=== PATIENT | female | born 1975 | race Caucasian/White ===

== ENCOUNTER 2018-02-23 17:05 | Emergency (ER) | payer OTHER ==
[~2018-02-23] VITALS: Ht 167.6 cm; Wt 75.3 kg
[~2018-02-23 17:05] MED LIST: HYDR1TAB10 PO
--- NOTE | 2018-02-23 17:56 | ED.ADGEN ---
Past History Past Medical History: Asthma Past Surgical History: Hysterectomy Alcohol Use: Occasionally Drug Use: None Adult General Chief Complaint Chief Complaint Chest pressure HPI HPI Patient is a 42-year-old female with history of exercise-induced asthma who presents with left-sided chest pressure starting 1 hour prior to ED arrival. Patient was running right light errands when symptoms began. It is described as dull and pressure-like and rated moderate to severe is currently rated as mild. It is not associated with nausea vomiting, shortness of breath. No fever chills , cough. No leg pain or swelling. No cough or sore throat or wheezing. No other acute symptoms or complaints. Patient also reports episode of palpitations and brief episodic left-sided chest pain lasting less than 2 minutes at a time 3 days ago. Patient has worked in her yard and is been exposed to heat over the weekend but denies any exertional chest pain during that time. No history of CAD , he or DVT. Denies history of hypertension, dyslipidemia and diabetes or family history of heart disease. Patient is a nonsmoker.[] Review of Systems Review of Systems Review symptoms as per history of present illness. All other review symptoms are negative. All other systems were reviewed and found to be within normal limits, except as documented in this note. Current Medications Current Medications Current Medications Medications (Trade) Dose Ordered Sig/Beth Start Time Stop Time Status Last Admin Dose Admin Aspirin (Ottoniel Aspirin) 325 mg 1X ONCE 02/23/18 19:45 02/23/18 19:46 DC 02/23/18 19:51 325 MG Hydrocodone Bitartrate/ Ibuprofen (Vicoprofen 7.5-200) 1 tab 1X ONCE 02/23/18 19:45 02/23/18 19:46 DC Allergies Allergies Allergies Coded Allergies Type Severity Reaction Last Updated Verified amoxicillin Allergy Mild Feet & Hands turn red 11/18/14 Yes Physical Exam Physical Exam Constitutional: Well developed, well nourished, no acute distress, non-toxic appearance. [] HENT: Normocephalic, atraumatic, bilateral external ears normal, oropharynx moist, no oral exudates, nose normal. [] Eyes: PERRLA, EOMI, conjunctiva normal, no discharge. [] Neck: Normal range of motion. [] Cardiovascular:Heart rate regular rhythm, no murmur, negative Homans sign. R [] Lungs & Thorax: Bilateral breath sounds clear to auscultation [] Abdomen: Bowel sounds normal, soft, no tenderness, no masses, no pulsatile masses. [] Skin: Warm, dry, no erythema, no rash. [] Back: No tenderness, no CVA tenderness. [] Extremities: No tenderness, no cyanosis, no clubbing, ROM intact, no edema. [] Neurologic: Alert and oriented X 3, normal motor function, normal sensory function, no focal deficits noted. [] Psychologic: Affect normal, judgement normal, mood normal. [] Current Patient Data Vital Signs Vital Signs Date Time Temp Pulse Resp B/P (MAP) Pulse Ox O2 Delivery O2 Flow Rate FiO2 02/23/18 20:04 74 22 120/67 (84) 98 Room Air 02/23/18 17:05 98.1 Lab Results Laboratory Tests Test 02/23/18 18:15 White Blood Count 5.7 x10^3/uL (4.0-11.0) Red Blood Count 4.71 x10^6/uL (3.50-5.40) Hemoglobin 13.9 g/dL (12.0-15.5) Hematocrit 40.6 % (36.0-47.0) Mean Corpuscular Volume 86 fL (79-100) Mean Corpuscular Hemoglobin 29 pg (25-35) Mean Corpuscular Hemoglobin Concent 34 g/dL (31-37) Red Cell Distribution Width 14.2 % (11.5-14.5) Platelet Count 262 x10^3/uL (140-400) Neutrophils (%) (Auto) 65 % (31-73) Lymphocytes (%) (Auto) 25 % (24-48) Monocytes (%) (Auto) 8 % (0-9) Eosinophils (%) (Auto) 1 % (0-3) Basophils (%) (Auto) 1 % (0-3) Neutrophils # (Auto) 3.7 x10^3uL (1.8-7.7) Lymphocytes # (Auto) 1.5 x10^3/uL (1.0-4.8) Monocytes # (Auto) 0.4 x10^3/uL (0.0-1.1) Eosinophils # (Auto) 0.1 x10^3/uL (0.0-0.7) Basophils # (Auto) 0.0 x10^3/uL (0.0-0.2) D-Dimer (Claudette) 0.32 mg/L (0.00-0.50) Sodium Level 140 mmol/L (136-145) Potassium Level 3.8 mmol/L (3.5-5.1) Chloride Level 106 mmol/L (98-107) Carbon Dioxide Level 27 mmol/L (21-32) Anion Gap 7 (6-14) Blood Urea Nitrogen 12 mg/dL (7-20) Creatinine 0.9 mg/dL (0.6-1.0) Estimated GFR (Cockcroft-Gault) 68.3 BUN/Creatinine Ratio 13 (6-20) Glucose Level 95 mg/dL (70-99) Calcium Level 9.0 mg/dL (8.5-10.1) Total Bilirubin 0.5 mg/dL (0.2-1.0) Aspartate Amino Transferase (AST) 21 U/L (15-37) Alanine Aminotransferase (ALT) 20 U/L (14-59) Alkaline Phosphatase 80 U/L (46-116) Troponin I Quantitative < 0.017 ng/mL (0-0.055) Total Protein 7.3 g/dL (6.4-8.2) Albumin 3.9 g/dL (3.4-5.0) Albumin/Globulin Ratio 1.1 (1.0-1.7) Serum Test, Qualitative Negative (NEG) EKG EKG [EKG: Normal sinus rhythm, rate 71, no acute ST-T wave changes, QTC 417. Right bundle branch block present.] Radiology/Procedures Radiology/Procedures [CXR:] Course & Med Decision Making Course & Med Decision Making Pertinent Labs and Imaging studies reviewed. (See chart for details) [Wrok up in progress and pending. Care endorsed to oncoming [facility] at 1800.] Final Impression Final Impression [] Dragon Disclaimer Dragon Disclaimer This electronic medical record was generated, in whole or in part, using a voice recognition dictation system. LATIA CHAVEZ DO Feb 23, 2018 17:56
--- NOTE | 2018-02-23 18:13 | EKG ---
[address] [address] Test Date: 2018-02-23 Test Time: 17:18:08 Pat Name: OMAIRA CASE Department: Room: Gender: F [employer] Processing Operator: YANET : 1975 Requested By: LATIA CHAVEZ Order Number: [id number] Reading MD: Measurements Intervals Mcleod Rate: 71 P: -32 IA: 128 QRS: 12 QRSD: 94 T: 47 QT: 384 QTc: 417 Interpretive Statements SINUS RHYTHM INCOMPLETE RIGHT BUNDLE BRANCH BLOCK NO SPECIFIC ECG ABNORMALITIES RI6.01 No previous ECG available for comparison
[2018-02-23 18:38] LABS: BASO % 1 % (0-3); EOS # 0.1 x10^3/uL (0.0-0.7); EOS % 1 % (0-3); HEMATOCRIT 40.6 % (36.0-47.0); HEMOGLOBIN 13.9 g/dL (12.0-15.5); LYMPH # 1.5 x10^3/uL (1.0-4.8); LYMPH % 25 % (24-48); MEAN CORPUSCULAR HEMOGLOBIN 29 pg (25-35); MEAN CORPUSCULAR HGB CONC 34 g/dL (31-37); MEAN CORPUSCULAR VOLUME 86 fL (79-100); MONO # 0.4 x10^3/uL (0.0-1.1); MONO % 8 % (0-9); NEUT # 3.7 x10^3uL (1.8-7.7); NEUT % 65 % (31-73); PLATELET COUNT 262 x10^3/uL (140-400); RED BLOOD COUNT 4.71 x10^6/uL (3.50-5.40); RED CELL DISTRIBUTION WIDTH 14.2 % (11.5-14.5); WHITE BLOOD COUNT 5.7 x10^3/uL (4.0-11.0)
[2018-02-23 18:52] LABS: ALBUMIN 3.9 g/dL (3.4-5.0); ALBUMIN/GLOBULIN RATIO 1.1 (1.0-1.7); CREATININE 0.9 mg/dL (0.6-1.0); GFR 68.3; POTASSIUM 3.8 mmol/L (3.5-5.1); TOTAL BILIRUBIN 0.5 mg/dL (0.2-1.0); TOTAL PROTEIN 7.3 g/dL (6.4-8.2)
[2018-02-23 18:53] LABS: PREG TEST PT QUAL NEGATIVE (NEG)
[2018-02-23] MEDS ORDERED: HYDROcodon/IBUPROFEN 7.5/200MG 1 TAB TABLET PO ONE (19:45)
[2018-02-23] MEDS ORDERED: ASPIRIN 325 MG TABLET PO ONE (19:45)
[2018-02-23] MEDS ORDERED: ASPI-630 PO (19:47)
[2018-02-23] MEDS ORDERED: IBUP400T18 PO (19:47)
[2018-02-23] MEDS ORDERED: HYDR-79 PO (19:47)
[2018-02-23 20:04] VITALS: BP 120/67
--- NOTE | 2018-02-24 07:46 | RAD ---
PROCEDURE: CHEST AP ONLY CLINICAL INDICATION: chest pain, pressure in chest with heart flutters
non smoker, exercise induced asthma
COMPARISON: None FINDINGS: No pneumothorax identified. Cardiac and mediastinal contours unremarkable. No pulmonary consolidation or acute airspace disease. No acute osseous abnormalities identified. IMPRESSION: No pulmonary consolidation or acute airspace disease. Electronically signed by: Kenroy Elam DO (02/24/2018 7:42 AM) [facility]
[2018-02-24] MEDS ORDERED: CYCL-331 PO (22:14)
== END 2018-02-23 20:07 | disposition home or self-care (01) ==
LOC: ER 17:05
DX: R07.89 Other chest pain (principal); J45.909 Unspecified asthma, uncomplicated; Z88.1 Allergy status to other antibiotic agents
CPT/HCPCS: 36415; 71045; 80053; 84484; 84703; 85025; 85379; 93005; 99285

== ENCOUNTER 2018-02-24 19:26 | Emergency (ER) | payer OTHER ==
[~2018-02-24] VITALS: Ht 167.6 cm; Wt 75.3 kg
[~2018-02-24 19:26] MED LIST changes: +ASPI-630 PO; +HYDR-79 PO; +IBUP400T18 PO
[2018-02-24 19:30] VITALS: BP 113/73
[2018-02-24] MEDS ORDERED: ORPHENADRINE CITRATE 60 MG/2 ML VIAL. IM ONE (20:30)
[2018-02-24] MEDS ORDERED: KETOROLAC 60 MG/2 ML VIAL. IM ONE (20:45)
--- NOTE | 2018-02-24 21:24 | PHYS DOC ---
Past History Past Medical History: Asthma, Other Past Surgical History: Hysterectomy, Oophorectomy, Other Alcohol Use: Occasionally Drug Use: None Adult General Chief Complaint Chief Complaint: LOWER BACK PAIN OR INJURY HPI HPI Patient is a 42 year old female who presents with complaint of low back pain. Patient states that she started developing back spasms earlier today. The patient recently had been seen in the emergency department with complaint of chest wall pain after she was moving a dryer 4 days ago. The patient followed up with her primary doctor and states that her chest wall pain has been improving. The patient however started developing pain in her lower back today. She states that she has history of degenerative joint disease at L4 and L5 and has had problems off and on with low back pain. The patient is currently setting up outpatient follow-up for this but has not seen a doctor in this area for her symptoms. Patient states that she tried taking baclofen earlier today upon onset of symptoms and lay down for approximately 1 hour. Patient states that after an hour she noted worsening symptoms. Patient denies any associated saddle anesthesia, footdrop, or loss of bowel or bladder control. Patient denies radiation of pain into her lower extremity. Patient states that she is having difficulty walking due to her pain and came to the emergency department for further treatment. Review of Systems Review of Systems Constitutional: Denies fever or chills [] Eyes: Denies change in visual acuity, redness, or eye pain [] HENT: Denies nasal congestion or sore throat [] Respiratory: Denies cough or shortness of breath [] Cardiovascular: Denies chest pain or edema[] GI: Denies abdominal pain, nausea, vomiting, bloody stools or diarrhea [] : Denies dysuria or hematuria [] Musculoskeletal: Back pain[] Integument: Denies rash or skin lesions [] Neurologic: Denies headache, focal weakness or sensory changes [] All other systems were reviewed and found to be within normal limits, except as documented in this note. Current Medications Current Medications Current Medications Medications (Trade) Dose Ordered Sig/Beth Start Time Stop Time Status Last Admin Dose Admin Ketorolac Tromethamine (Toradol) 60 mg 1X ONCE 02/24/18 20:45 02/24/18 20:46 DC 02/24/18 21:12 60 MG Orphenadrine Citrate (Norflex) 60 mg 1X ONCE 02/24/18 20:30 02/24/18 20:31 DC 02/24/18 21:10 60 MG Allergies Allergies Allergies Coded Allergies Type Severity Reaction Last Updated Verified amoxicillin Allergy Mild Feet & Hands turn red 11/18/14 Yes Physical Exam Physical Exam Constitutional: Alert, afebrile, appears in [id number] discomfort. [] HENT: Normocephalic, atraumatic, bilateral external ears normal, oropharynx moist, no oral exudates, nose normal. [] Eyes: PERRLA, EOMI, conjunctiva normal, no discharge. [] Neck: Normal range of motion, no tenderness, supple, no stridor. [] Cardiovascular:Heart rate regular rhythm, no murmur [] Lungs & Thorax: Bilateral breath sounds clear to auscultation [] Abdomen: Bowel sounds normal, soft, no tenderness, no masses, no pulsatile masses. [] Skin: Warm, dry, no erythema, no rash. [] Back: No midline tenderness, bilateral para spinous muscle tenderness to palpation in the lower lumbar spine, no flank ecchymosis. [] Extremities: No tenderness, no cyanosis, no clubbing, ROM intact, no edema. [] Neurologic: Alert and oriented X 3, normal motor function, normal sensory function, no focal deficits noted. [] Current Patient Data Vital Signs Vital Signs Date Time Temp Pulse Resp B/P (MAP) Pulse Ox O2 Delivery O2 Flow Rate FiO2 02/24/18 19:30 97.7 91 20 98 Room Air Lab Results Laboratory Tests Test 02/24/18 21:06 Urine Collection Type Unknown Urine Color Yellow Urine Clarity Hazy Urine pH 5.5 Urine Specific [place] 1.015 Urine Protein Neg Urine Glucose (UA) Neg mg/dL Urine Ketones (Stick) Neg mg/dL Urine Blood Neg Urine Nitrite Neg Urine Bilirubin Neg Urine Urobilinogen Dipstick 0.2 mg/dL Urine Leukocyte Esterase Neg Urine RBC 0 /HPF Urine WBC Occ /HPF Urine Squamous Epithelial Cells Few /LPF Urine Bacteria 0 /HPF Urine Mucus Slight /LPF Current Medications Medications (Trade) Dose Ordered Sig/Beth Route PRN Reason Start Time Stop Time Status Last Admin Dose Admin Ketorolac Tromethamine (Toradol) 60 mg 1X ONCE IM 02/24/18 20:45 02/24/18 20:46 DC 02/24/18 21:12 Orphenadrine Citrate (Norflex) 60 mg 1X ONCE IM 02/24/18 20:30 02/24/18 20:31 DC 02/24/18 21:10 EKG EKG Not performed[] Radiology/Procedures Radiology/Procedures Not performed[] Course & Med Decision Making Course & Med Decision Making Pertinent Labs and Imaging studies reviewed. (See chart for details) The patient was treated with IM Toradol, Norflex, and given oral hydrocodone in the emergency department with improvement symptoms. Patient states she has a prescription for hydrocodone and ibuprofen at home. I will add Flexeril for further treatment. Advised to discontinue any further use of baclofen while taking these medications. Advised follow-up with primary doctor in the next 3-4 days for reevaluation and return to emergency department for any worsening symptoms. Patient was understanding and in agreement with treatment plan. Dragon Disclaimer Dragon Disclaimer This electronic medical record was generated, in whole or in part, using a voice recognition dictation system. Departure Departure: Impression: Primary Impression: Acute exacerbation of chronic low back pain Disposition: HOME, SELF-CARE Condition: IMPROVED Referrals: SAGE MUIR DO (PCP) Patient Instructions: Back Pain, Adult Additional Instructions: Follow-up with your primary doctor in the next 3 days for reevaluation. Do not take any baclofen while taking Flexeril. Return to the emergency department for any worsening symptoms. Scripts Cyclobenzaprine Hcl (CYCLOBENZAPRINE HCL) 10 Mg Tablet 1 TAB PO QHS PRN for MUSCLE PAIN, #15 TAB Prov: JAS MARSH MD 02/24/18 JAS MARSH MD Feb 24, 2018 21:23
[2018-02-24 21:51] LABS: BILIRUBIN,URINE NEG (NEG); CLARITY,URINE HAZY; COLOR,URINE YELLOW; GLUCOSE,URINE NEG (NEG); NITRITE,URINE NEG (NEG); UROBILINOGEN,URINE 0.2 mg/dL (0.2 mg/dL)
[2018-02-24 21:52] LABS: BACTERIA,URINE 0 /HPF (0-FEW); RBC,URINE 0 /HPF (0-2); SQUAMOUS EPITHELIAL CELL,UR FEW /LPF; WBC,URINE OCC /HPF (0-4)
[2018-02-24] MEDS ORDERED: CYCL-331 PO (22:14)
[2018-02-24] MEDS ORDERED: HYDROcodone/APAP 5/325MG 1 TAB TABLET PO ONE (22:15)
== END 2018-02-24 22:42 | disposition home or self-care (01) ==
LOC: ER 19:26
DX: G89.29 Other chronic pain (principal); M54.5 Low back pain; J45.909 Unspecified asthma, uncomplicated; Z88.1 Allergy status to other antibiotic agents
CPT/HCPCS: 81001; 96372; 99284; J1885; J2360